=== PATIENT | male | born 1945 | race Caucasian/White ===

== ENCOUNTER → 2018-01-08 07:45 | Outpatient (BNVA) | payer MEDICARE, SELFPAY | PROVIDERS: Visit Provider Urology | DX: C62.91 Malignant neoplasm of right testis, unspecified whether descended or undescended (principal) | CPT/HCPCS: 99213 ==

== ENCOUNTER 2018-01-08 08:43 | Outpatient (CLI) | payer MEDICARE, SELFPAY ==
[2018-01-08 10:11] LABS: LDH 201 U/L (85-227)
[2018-01-09 16:13] LABS: Beta-HCG, Quant, Tumor Marker <0.6 IU/L (<1.4)
[2018-01-11 10:27] LABS: AFP Tumor Marker <2.0 ng/mL (<8.1)
== END 2018-01-08 09:03 ==
PROVIDERS: PCP Emergency Medicine; Visit Provider Urology
DX: C62.91 Malignant neoplasm of right testis, unspecified whether descended or undescended (principal)
CPT/HCPCS: 36415; 99213; 82105; 83615; 84702

== ENCOUNTER → 2018-07-09 07:59 | Outpatient (BNVA) | payer MEDICARE, SELFPAY | PROVIDERS: PCP Emergency Medicine; Visit Provider Urology | DX: C62.91 Malignant neoplasm of right testis, unspecified whether descended or undescended (principal) | CPT/HCPCS: 99213 ==

== ENCOUNTER 2018-07-09 14:34 | Outpatient (CLI) | payer MEDICARE, SELFPAY ==
[2018-07-09 16:35] LABS: LDH 226 U/L (85-227)
[2018-07-12 08:52] LABS: AFP Tumor Marker <2.0 ng/mL (<8.1)
[2018-07-12 13:32] LABS: Beta-HCG, Quant, Tumor Marker <0.6 IU/L (<1.4)
== END 2018-07-09 14:54 ==
PROVIDERS: PCP Emergency Medicine; Visit Provider Urology
DX: C62.91 Malignant neoplasm of right testis, unspecified whether descended or undescended (principal)
CPT/HCPCS: 36415; 99213; 82105; 83615; 84702

== ENCOUNTER 2018-10-20 09:45 | Outpatient (CLI) | payer MEDICARE, SELFPAY ==
[2018-10-21 10:03] LABS: PSA, Screening 3.2 ng/ml (0-6.5)
== END 2018-10-20 10:05 ==
PROVIDERS: PCP Emergency Medicine; Visit Provider Emergency Medicine
DX: Z12.5 Encounter for screening for malignant neoplasm of prostate (principal)
CPT/HCPCS: 36415; 84153

== ENCOUNTER → 2019-01-04 08:23 | Outpatient (BNVA) | payer MEDICARE, SELFPAY | PROVIDERS: PCP Emergency Medicine; Visit Provider Urology | DX: C62.91 Malignant neoplasm of right testis, unspecified whether descended or undescended (principal); Z90.79 Acquired absence of other genital organ(s) | CPT/HCPCS: 36415; 99213; 82105; 83615; 84702 ==

== ENCOUNTER 2019-01-04 09:03 | Outpatient (CLI) | payer MEDICARE, SELFPAY ==
[2019-01-04 10:28] LABS: LDH 167 U/L (85-227)
[2019-01-05 12:34] LABS: AFP Tumor Marker <2.5 ng/mL (<8.1)
[2019-01-05 13:33] LABS: Beta-HCG, Quant, Tumor Marker <0.6 IU/L (<1.4)
== END 2019-01-04 09:23 ==
PROVIDERS: PCP Emergency Medicine; Visit Provider Urology
DX: C62.91 Malignant neoplasm of right testis, unspecified whether descended or undescended (principal)
CPT/HCPCS: 36415; 82105; 83615; 84702

== ENCOUNTER → 2019-07-12 08:08 | Outpatient (BNVA) | payer MEDICARE, SELFPAY | PROVIDERS: PCP Emergency Medicine; Referring Provider Emergency Medicine; Visit Provider Urology | DX: C62.91 Malignant neoplasm of right testis, unspecified whether descended or undescended (principal) | CPT/HCPCS: NC OV ==

== ENCOUNTER 2019-09-01 04:19 | Outpatient (CLI) | payer MEDICARE, SELFPAY ==
[2019-09-01 08:52] LABS: LDH 190 U/L (85-227)
[2019-09-02 09:16] LABS: AFP Tumor Marker <2.5 ng/mL (<8.1)
[2019-09-02 11:36] LABS: Beta-HCG, Quant, Tumor Marker <0.6 IU/L (<1.4)
== END 2019-09-01 04:39 ==
PROVIDERS: PCP Emergency Medicine; Visit Provider Urology
DX: C62.91 Malignant neoplasm of right testis, unspecified whether descended or undescended (principal); E78.5 Hyperlipidemia, unspecified
CPT/HCPCS: 36415; 82105; 83615; 84702

== ENCOUNTER 2019-11-01 09:00 | Outpatient (CLI) | payer MEDICARE, SELFPAY ==
[2019-11-01 12:43] LABS: Anion Gap 6.8 mmol/L (3-11); BUN 19 mg/dL (7-18); CO2 30.2 mmol/L (21.0-32.0); CREATININE 1.03 mg/dL (0.70-1.30); Calcium 9.5 mg/dL (8.5-10.1); Calculated LDL 75 mg/dL (<100); Chloride 103 mmol/L (98-107); Cholesterol 145 mg/dL (<200); Glucose 115 mg/dL (74-106); HDL Cholesterol 48 mg/dL (40-60); Potassium 3.8 mmol/L (3.5-5.1); Sodium 140 mmol/L (136-145); Triglyceride 110 mg/dL (<150)
== END 2019-11-01 09:20 ==
PROVIDERS: PCP Emergency Medicine; Visit Provider Emergency Medicine
DX: I25.10 Atherosclerotic heart disease of native coronary artery without angina pectoris (principal); I10 Essential (primary) hypertension
CPT/HCPCS: 36415; 80048; 80061

== ENCOUNTER → 2020-03-13 08:45 | Outpatient (BNVA) | payer MEDICARE, SELFPAY | PROVIDERS: PCP Emergency Medicine; Referring Provider Emergency Medicine; Visit Provider Urology | DX: C62.91 Malignant neoplasm of right testis, unspecified whether descended or undescended (principal); Z90.79 Acquired absence of other genital organ(s) | CPT/HCPCS: 99213 ==

== ENCOUNTER 2020-03-13 13:20 | Outpatient (REF) | payer MEDICARE, SELFPAY ==
[2020-03-13 13:17] LABS: LDH 180 U/L (85-227)
[2020-03-14 08:59] LABS: AFP Tumor Marker <2.5 ng/mL (<8.1)
[2020-03-30 12:22] LABS: Beta-HCG, Quant, Tumor Marker <0.6 IU/L
== END 2020-03-13 13:40 ==
LOC: LBN 13:20
PROVIDERS: PCP Emergency Medicine; Visit Provider Urology
DX: C62.91 Malignant neoplasm of right testis, unspecified whether descended or undescended (principal)
CPT/HCPCS: 82105; 83615; 84702

== ENCOUNTER → 2020-09-18 08:43 | Outpatient (BNVA) | payer MEDICARE, SELFPAY | PROVIDERS: PCP Emergency Medicine; Referring Provider Emergency Medicine; Visit Provider Urology | DX: C62.91 Malignant neoplasm of right testis, unspecified whether descended or undescended (principal) | CPT/HCPCS: 99213; 99214 ==

== ENCOUNTER 2020-09-18 10:20 | Outpatient (REF) | payer MEDICARE, SELFPAY ==
[2020-09-18 11:36] LABS: LDH 168 U/L (85-227)
[2020-09-19 09:53] LABS: AFP Tumor Marker <2.5 ng/mL (<8.1)
[2020-09-20 13:00] LABS: Beta-HCG, Quant, Tumor Marker <0.6 IU/L (<1.4)
== END 2020-09-18 10:21 | disposition home or self-care (01) ==
LOC: LBN 10:20
PROVIDERS: PCP Emergency Medicine; Visit Provider Urology
DX: C62.91 Malignant neoplasm of right testis, unspecified whether descended or undescended (principal); I10 Essential (primary) hypertension
CPT/HCPCS: 82105; 83615; 84702

== ENCOUNTER 2020-11-29 15:11 | Outpatient (REF) | payer MEDICARE, SELFPAY ==
[2020-11-29 18:13] LABS: Anion Gap 10.8 mmol/L (3-11); BUN 16 mg/dL (7-18); CO2 29.2 mmol/L (21.0-32.0); CREATININE 1.1 mg/dL (0.70-1.30); Calcium 9.5 mg/dL (8.5-10.1); Calculated LDL 79 mg/dL (<100); Chloride 102 mmol/L (98-107); Cholesterol 144 mg/dL (<200); Glucose 92 mg/dL (74-106); HDL Cholesterol 50 mg/dL (40-60); Potassium 4.1 mmol/L (3.5-5.1); Sodium 142 mmol/L (136-145); Triglyceride 79 mg/dL (<150)
[2020-11-30 16:46] LABS: PSA, Diagnostic 3.7 ng/mL (0.0-6.5)
== END 2020-11-29 15:12 | disposition home or self-care (01) ==
LOC: LBN 15:11
PROVIDERS: PCP Emergency Medicine; Visit Provider Emergency Medicine
DX: I10 Essential (primary) hypertension (principal); I25.10 Atherosclerotic heart disease of native coronary artery without angina pectoris; R97.20 Elevated prostate specific antigen [PSA]
CPT/HCPCS: 80048; 80061; 84153

== ENCOUNTER → 2021-03-22 08:42 | Outpatient (BNVA) | payer MEDICARE, SELFPAY | PROVIDERS: PCP Emergency Medicine; Referring Provider Emergency Medicine; Visit Provider Urology | DX: C62.91 Malignant neoplasm of right testis, unspecified whether descended or undescended (principal); R97.20 Elevated prostate specific antigen [PSA] | CPT/HCPCS: 99213 ==

== ENCOUNTER 2021-03-22 15:07 | Outpatient (REF) | payer MEDICARE, SELFPAY ==
[2021-03-22 12:33] LABS: LDH 185 U/L (85-227)
[2021-03-25 09:23] LABS: AFP Tumor Marker <2.5 ng/mL (<8.1)
[2021-03-25 09:48] LABS: Beta-HCG, Quant, Tumor Marker <0.6 IU/L (<1.4)
== END 2021-03-22 15:08 | disposition home or self-care (01) ==
LOC: LBN 15:07
PROVIDERS: PCP Emergency Medicine; Visit Provider Urology
DX: C62.91 Malignant neoplasm of right testis, unspecified whether descended or undescended (principal); R97.20 Elevated prostate specific antigen [PSA]
CPT/HCPCS: 82105; 83615; 84702

== ENCOUNTER → 2021-06-25 00:38 | Outpatient (CLI) | payer MEDICARE, SELFPAY ==
--- NOTE | 2021-06-25 07:15 | DI.US_ITS ---
Exam(s) US CAROTID EXAM: US CAROTID CLINICAL HISTORY: know right carotid occlusion,BRUIT,R09.89. TECHNIQUE: Ultrasound carotids performed using grayscale, color-flow, and spectral Doppler imaging. COMPARISON: No exams were available for comparison FINDINGS: RIGHT CAROTID ARTERY: Plaque: Occlusion of the right internal carotid artery. Velocity elevation: Mild systolic velocity elevation in the right external carotid artery.. LEFT CAROTID ARTERY: Plaque: Mild plaque at the common carotid bulb . Velocity elevation: None. VERTEBRAL ARTERIES: Antegrade flow bilaterally. Measurements: R Bulb: 41cm/s PS / 9.5cm/s ED R CCA: 42.1cm/s PS / 12.6cm/s ED R ECA: 117.5cm/s PS / 18.05cm/s ED R ICA : Occluded R Vert: 88.8cm/s PS / 20.4cm/s ED L Bulb: 87.5cm/s PS /23.1cm/s ED L CCA: 73.7cm/s PS / 18.8cm/s ED L ECA: 68.7cm/s PS /15.9cm/s ED L ICA Prox:54.6cm/s PS / 13.5cm/s ED L ICA Mid: 70.1cm/sPS / 20.6cm/s ED L ICA Distal: 81.6cm/s PS / 23.1cm/s ED L Vert: 40.3cm/s PS / 9.7cm/s ED L SVR: 1.11 L DVR: 1.23 IMPRESSION: Left: No evidence for hemodynamically significant carotid stenosis. Right: Occluded right internal carotid artery. Systolic velocity elevation in the right external car otid artery. Criteria for Carotid Stenosis: Normal: ICA PSV <125 cm/s no plaque or intimal thickening is visible. <50% stenosis: ICA PSV <125 cm/s and plaque or intimal thickening is visible. 50-69% stenosis: ICA PSV is 125-250 cm/s and plaque is visible. >70% stenosis to near occlusion: ICA PSV >250 cm/s with visible plaque and luminal narrowing. DATA REPOSITORY:
== END ==
PROVIDERS: PCP Family Medicine; Visit Provider Emergency Medicine
DX: R09.89 Other specified symptoms and signs involving the circulatory and respiratory systems (principal); I65.21 Occlusion and stenosis of right carotid artery
CPT/HCPCS: 93880

== ENCOUNTER 2021-09-13 15:58 | Outpatient (REF) | payer MEDICARE, SELFPAY | END 2021-09-13 15:59 | disposition home or self-care (01) | LOC: LBN 15:58 | PROVIDERS: PCP Family Medicine; Visit Provider Emergency Medicine ==

== ENCOUNTER 2021-09-13 16:09 | Outpatient (REF) | payer MEDICARE, SELFPAY ==
[2021-09-13 09:30] LABS: Anion Gap 4.1 mmol/L (3-11); BUN 17 mg/dL (7-18); CO2 31.9 mmol/L (21.0-32.0); CREATININE 1.1 mg/dL (0.70-1.30); Calcium 9.6 mg/dL (8.5-10.1); Chloride 101 mmol/L (98-107); Glucose 120 mg/dL (74-106); Potassium 3.6 mmol/L (3.5-5.1); Sodium 137 mmol/L (136-145)
[2021-09-13 09:35] LABS: LDH 169 U/L (85-227)
[2021-09-16 11:26] LABS: AFP Tumor Marker <2.5 ng/mL (<8.1)
[2021-09-16 11:55] LABS: Beta-HCG, Quant, Tumor Marker <0.6 IU/L (<1.4)
== END 2021-09-13 16:10 | disposition home or self-care (01) ==
LOC: LBN 16:09
PROVIDERS: Emergency Medicine; PCP Family Medicine; Visit Provider Urology
DX: C62.91 Malignant neoplasm of right testis, unspecified whether descended or undescended (principal); R09.89 Other specified symptoms and signs involving the circulatory and respiratory systems; I10 Essential (primary) hypertension
CPT/HCPCS: 80048; 82105; 83615; 84702

== ENCOUNTER → 2021-09-17 13:54 | Outpatient (BNVA) | payer MEDICARE, SELFPAY | PROVIDERS: PCP Family Medicine; Referring Provider Family Medicine; Visit Provider Urology | DX: C62.91 Malignant neoplasm of right testis, unspecified whether descended or undescended (principal); R97.20 Elevated prostate specific antigen [PSA] | CPT/HCPCS: 99215 ==

== ENCOUNTER 2022-01-31 02:04 | Outpatient (CLI) | payer MEDICARE, SELFPAY ==
[2022-02-03 12:19] LABS: PSA, Screening 4.7 ng/mL (<=6.5)
== END 2022-01-31 02:05 | disposition home or self-care (01) ==
LOC: LBO 02:05
PROVIDERS: PCP Family Medicine; Visit Provider Urology
DX: R97.20 Elevated prostate specific antigen [PSA] (principal); Z12.5 Encounter for screening for malignant neoplasm of prostate
CPT/HCPCS: 36415; 84153

== ENCOUNTER 2022-03-21 11:38 | Outpatient (REF) | payer MEDICARE, SELFPAY ==
[2022-03-21 09:04] LABS: LDH 170 U/L (85-227)
[2022-03-24 10:36] LABS: AFP Tumor Marker <2.5 ng/mL (<8.1)
[2022-03-24 11:16] LABS: Beta-HCG, Quant, Tumor Marker <0.6 IU/L (<1.4)
== END 2022-03-21 11:39 | disposition home or self-care (01) ==
LOC: LBN 11:38
PROVIDERS: PCP Family Medicine; Visit Provider Urology
DX: R97.20 Elevated prostate specific antigen [PSA] (principal); C62.91 Malignant neoplasm of right testis, unspecified whether descended or undescended
CPT/HCPCS: 82105; 83615; 84153; 84702

== ENCOUNTER → 2022-05-13 09:54 | Outpatient (BNVA) | payer MEDICARE, SELFPAY | PROVIDERS: PCP Family Medicine; Referring Provider Family Medicine; Visit Provider Urology | DX: R97.20 Elevated prostate specific antigen [PSA] (principal); C62.91 Malignant neoplasm of right testis, unspecified whether descended or undescended | CPT/HCPCS: 99214 ==

== ENCOUNTER → 2022-11-14 08:28 | Outpatient (BNVA) | payer MEDICARE, SELFPAY | PROVIDERS: PCP Family Medicine; Referring Provider Family Medicine; Visit Provider Urology | DX: Z85.47 Personal history of malignant neoplasm of testis (principal); R97.20 Elevated prostate specific antigen [PSA] | CPT/HCPCS: 99214 ==

== ENCOUNTER 2022-11-14 12:51 | Outpatient (CLI) | payer MEDICARE, SELFPAY ==
[2022-11-14 10:25] LABS: LDH 194 U/L (85-227)
[2022-11-17 08:15] LABS: AFP Tumor Marker <2.5 ng/mL (<8.1)
[2022-11-17 09:54] LABS: PSA, Diagnostic 4.8 ng/mL (<=6.5)
[2022-11-17 11:24] LABS: Beta-HCG, Quant, Tumor Marker <0.6 IU/L (<1.4)
== END 2022-11-14 12:52 | disposition home or self-care (01) ==
LOC: LBO 12:51
PROVIDERS: PCP Family Medicine; Visit Provider Urology
DX: R97.20 Elevated prostate specific antigen [PSA] (principal); C62.91 Malignant neoplasm of right testis, unspecified whether descended or undescended
CPT/HCPCS: 36415; 99214; 82105; 83615; 84153; 84702

== ENCOUNTER 2023-01-14 12:50 | Outpatient (CLI) | payer MEDICARE, SELFPAY ==
[2023-01-14 11:47] LABS: HCT 46.3 % (40.0-50.0); MCH 31.7 pg (27.0-33.0); MCHC 34.6 % (32.0-36.0); MCV 92 fL (80-95); Platelet Count 195 10^3/uL (130-400); RBC 5.05 10^6/uL (4.36-5.78); RDW 12.8 % (11.8-14.1); WBC 9.42 10^3/uL (4.4-10.8)
[2023-01-14 12:33] LABS: ALT 48 U/L (16-63); AST 23 U/L (15-37); Albumin 3.8 g/dL (3.4-5.0); Alkaline Phosphatase 99 U/L (46-116); Anion Gap 7.9 mmol/L (3-11); BUN 21 mg/dL (7-18); Bilirubin, Total 1.7 mg/dL (0.2-1.0); CO2 27.1 mmol/L (21.0-32.0); CREATININE 1.1 mg/dL (0.70-1.30); Calcium 9.6 mg/dL (8.5-10.1); Calculated LDL 51 mg/dL (<100); Chloride 101 mmol/L (98-107); Cholesterol 142 mg/dL (<200); Estimated GFR 69.57 (mL/min/1.73m2); Glucose 112 mg/dL (74-106); HDL Cholesterol 48 mg/dL (40-60); Potassium 3.5 mmol/L (3.5-5.1); Sodium 136 mmol/L (136-145); Total Protein 7.5 g/dL (6.4-8.2); Triglyceride 216 mg/dL (<150)
[2023-01-15 09:47] LABS: Lab Add On Test DONE
[2023-01-15 10:23] LABS: Hemoglobin A1C 6.2 % (<5.7)
== END 2023-01-14 12:51 | disposition home or self-care (01) ==
LOC: LBO 12:51
PROVIDERS: PCP Family Medicine; Visit Provider Nurse Practitioner Family
DX: I10 Essential (primary) hypertension (principal); I25.10 Atherosclerotic heart disease of native coronary artery without angina pectoris; R97.20 Elevated prostate specific antigen [PSA]; Z00.00 Encounter for general adult medical examination without abnormal findings; R73.09 Other abnormal glucose
CPT/HCPCS: 36415; 80053; 80061; 85027; 83036

== ENCOUNTER → 2023-04-29 14:45 | Outpatient (CLI) | payer MEDICARE, SELFPAY ==
--- NOTE | 2023-04-29 11:00 | DI.CT_ITS ---
Exam(s) CT HEAD WO EXAM: CT HEAD WO CLINICAL HISTORY: head injury, posterior scalp injury. ON plavix,S09.90xa. TECHNIQUE: Imaging Protocol: Axial computed tomography images with coronal and sagittal reformatted images were created and reviewed COMPARISON: No exams were available for comparison FINDINGS: There are no skull fractures. There is no fluid in the visualized paranasal sinuses. There is no evidence of intracranial hemorrhage, mass effect, or shift of midline structures. There are no extra-axial fluid collections. The ventricles are not enlarged or shifted and there is no blo od within the ventricular system nor within the basal cisterns. Calcification is noted in the right vertebral artery at the skull base. There is periventricular hypodensity which is predominately right-sided. IMPRESSION: No skull fracture. No intracranial hemorrhage. However, there is asymmetric periventricular hypodensity on the left side of the brain. Recommend fo llow-up MRI. RADIATION DOSE DELIVERED: Total DLP DATA REPOSITORY: All CT scans at this facility are submitted to the National Radiology Data Registry (NRDR) Dose Index Registry (DIR) with the [employer] ([employer]). RADIATION OPTIMIZATION: All CT scans at this facility use at least one of these dose optimization te chniques: automated exposure control; mA and/or kV adjustment per patient size (includes targeted exa ms where dose is matched to clinical indication); or iterative reconstruction.
== END ==
PROVIDERS: PCP Family Medicine; Visit Provider Physician Assistant
DX: S09.90XA Unspecified injury of head, initial encounter (principal); R94.02 Abnormal brain scan; X58.XXXA Exposure to other specified factors, initial encounter
CPT/HCPCS: 70450

== ENCOUNTER → 2023-05-13 02:10 | Outpatient (CLI) | payer MEDICARE, SELFPAY ==
--- NOTE | 2023-05-13 07:15 | DI.MRI_ITS ---
Exam(s) MR BRAIN WO/W EXAM: MR BRAIN WO/W CLINICAL HISTORY: left asymmetry noted on CT,head injury,s09.90xa TECHNIQUE: Multiplanar multisequence MRI of the brain was performed. CONTRAST MATERIAL: IV Contrast: mL of Dotarem contrast administered. COMPARISON: CT CT HEAD WO from 04/29/2023 FINDINGS: VENTRICLES AND EXTRA AXIAL SPACES: Normal in size and morphology for the patient's age. HEMORRHAGE: None. CEREBRAL PARENCHYMA: No focus of restricted diffusion to suggest acute infarct. No space-occupying le armaan identified. There are several areas of hyperintense signal seen in the white matter on the FLAIR and T2 weighted images consistent with chronic microvascular ischemic disease. It is more prominent in the left cerebral hemisphere. MIDLINE SHIFT: None. BRAINSTEM/CEREBELLUM: Normal. CALVARIUM: Normal. ENHANCEMENT: No suspicious enhancement identified. VISUALIZED PARANASAL SINUSES/MASTOIDS: Clear. [place]: There is loss of the normal flow void in the distal cervical, petrous and cavernous portions of the right internal carotid artery. PITUITARY GLAND: Unremarkable. OTHER FINDINGS: IMPRESSION: 1. Cerebral atrophy and chronic microvascular ischemic disease. 2. No evidence of an intracranial mass or enhancing lesion. 3. Loss of the flow void in the distal cervical, petrous and cavernous portions of the right internal carotid arteries concerning for obstruction. An MRA or CT angiography of the head and neck is recom mended for further evaluation. Unexpected findings DATA REPOSITORY:
[2023-05-13 10:16] LABS: CREATININE 1.1 mg/dL (0.70-1.30); Estimated GFR 69.57 (mL/min/1.73m2)
[2023-05-13 10:25] LABS: LDH 272 U/L (85-227)
[2023-05-13 17:50] LABS: AFP Tumor Marker <2.5 ng/mL (<8.1)
[2023-05-13 17:57] LABS: PSA, Diagnostic 5.5 ng/mL (<=6.5)
[2023-05-14 17:38] LABS: Beta-HCG, Quant, Tumor Marker <0.6 IU/L (<1.4)
== END ==
PROVIDERS: Urology; PCP Family Medicine; Visit Provider Physician Assistant
DX: S09.90XA Unspecified injury of head, initial encounter (principal); C62.91 Malignant neoplasm of right testis, unspecified whether descended or undescended; R97.20 Elevated prostate specific antigen [PSA]; R94.02 Abnormal brain scan; G31.9 Degenerative disease of nervous system, unspecified
CPT/HCPCS: 70553; 82105; 82565; 83615; 84153; 84702

== ENCOUNTER 2023-05-15 02:43 | Outpatient (CLI) | payer MEDICARE, SELFPAY ==
[2023-05-15 18:30] LABS: AFP Tumor Marker <2.5 ng/mL (<8.1); PSA, Diagnostic 5.4 ng/mL (<=6.5)
[2023-05-18 15:08] LABS: Beta-HCG, Quant, Tumor Marker <0.6 IU/L (<1.4)
== END 2023-05-15 02:44 | disposition home or self-care (01) ==
LOC: LBO 02:43
PROVIDERS: PCP Family Medicine; Visit Provider Urology
DX: C62.91 Malignant neoplasm of right testis, unspecified whether descended or undescended (principal); R97.20 Elevated prostate specific antigen [PSA]
CPT/HCPCS: 36415; 82105; 84153; 84702

== ENCOUNTER → 2023-05-22 09:45 | Outpatient (BNVA) | payer MEDICARE, SELFPAY | PROVIDERS: PCP Family Medicine; Referring Provider Family Medicine; Visit Provider Urology | DX: R35.1 Nocturia (principal); C62.91 Malignant neoplasm of right testis, unspecified whether descended or undescended; R97.20 Elevated prostate specific antigen [PSA] | CPT/HCPCS: 99214 ==

== ENCOUNTER 2023-11-20 01:22 | Outpatient (CLI) | payer MEDICARE, SELFPAY ==
[2023-11-20 12:43] LABS: LDH 176 U/L (85-227)
[2023-11-20 23:02] LABS: PSA, Diagnostic 5.5 ng/mL (<=6.5)
[2023-11-23 09:09] LABS: AFP Tumor Marker <2.5 ng/mL (<8.1)
[2023-11-23 14:19] LABS: Beta-HCG, Quant, Tumor Marker <0.6 IU/L (<1.4)
== END 2023-11-20 01:23 | disposition home or self-care (01) ==
LOC: LOS 01:22
PROVIDERS: PCP Family Medicine; Visit Provider Urology
DX: C62.91 Malignant neoplasm of right testis, unspecified whether descended or undescended (principal); R97.20 Elevated prostate specific antigen [PSA]
CPT/HCPCS: 36415; 82105; 83615; 84153; 84702

== ENCOUNTER → 2023-11-27 07:51 | Outpatient (BNVA) | payer MEDICARE, SELFPAY | PROVIDERS: PCP Family Medicine; Visit Provider Urology | DX: C62.91 Malignant neoplasm of right testis, unspecified whether descended or undescended (principal); R97.20 Elevated prostate specific antigen [PSA] | CPT/HCPCS: 99215 ==

== ENCOUNTER 2023-12-22 12:53 | Outpatient (CLI) | payer MEDICARE, SELFPAY ==
[2023-12-22 12:51] LABS: Anion Gap 8.3 mmol/L (3-11); BUN 20 mg/dL (7-18); CO2 28.7 mmol/L (21.0-32.0); CREATININE 1.1 mg/dL (0.70-1.30); Calcium 9.5 mg/dL (8.5-10.1); Calculated LDL 56 mg/dL (<100); Chloride 105 mmol/L (98-107); Cholesterol 135 mg/dL (<200); Estimated GFR 69.14 (mL/min/1.73m2); Glucose 109 mg/dL (74-106); HDL Cholesterol 64 mg/dL (40-60); Potassium 3.9 mmol/L (3.5-5.1); Sodium 142 mmol/L (136-145); Triglyceride 75 mg/dL (<150)
[2023-12-22 13:23] LABS: Hemoglobin A1C 5.6 % (<5.7)
== END 2023-12-22 12:54 | disposition home or self-care (01) ==
LOC: LOS 12:54
PROVIDERS: PCP Family Medicine; Referring Provider Nurse Practitioner Family; Visit Provider Nurse Practitioner Family
DX: Z00.00 Encounter for general adult medical examination without abnormal findings (principal); I10 Essential (primary) hypertension; I25.10 Atherosclerotic heart disease of native coronary artery without angina pectoris; R97.20 Elevated prostate specific antigen [PSA]; R73.03 Prediabetes
CPT/HCPCS: 36415; 80048; 80061; 83036

== ENCOUNTER 2024-05-26 11:14 | Outpatient (CLI) | payer MEDICARE, SELFPAY ==
[2024-05-26 11:40] LABS: LDH 159 U/L (85-227)
[2024-05-26 22:54] LABS: PSA, Diagnostic 5.3 ng/mL (<=6.5)
[2024-05-27 09:42] LABS: AFP Tumor Marker <2.5 ng/mL (<8.1)
[2024-05-28 09:51] LABS: Beta-HCG, Quant, Tumor Marker <0.6 IU/L (<1.4)
== END 2024-05-26 11:15 | disposition home or self-care (01) ==
LOC: LBO 11:14
PROVIDERS: PCP Family Medicine; Visit Provider Urology
DX: C62.91 Malignant neoplasm of right testis, unspecified whether descended or undescended; R97.20 Elevated prostate specific antigen [PSA]
CPT/HCPCS: 36415; 82105; 83615; 84153; 84702

== ENCOUNTER → 2024-06-03 07:48 | Outpatient (BNVA) | payer MEDICARE, SELFPAY | PROVIDERS: PCP Family Medicine; Referring Provider Family Medicine; Visit Provider Urology | DX: K40.90 Unilateral inguinal hernia, without obstruction or gangrene, not specified as recurrent (principal); C62.91 Malignant neoplasm of right testis, unspecified whether descended or undescended | CPT/HCPCS: 99214 ==

== ENCOUNTER 2024-11-21 04:42 | Outpatient (CLI) | payer MEDICARE, SELFPAY ==
[2024-11-21 14:03] LABS: Hemoglobin A1C 5.5 % (<5.7)
[2024-11-21 15:42] LABS: ALT 47 U/L (16-63); AST 30 U/L (15-37); Albumin 4.0 g/dL (3.4-5.0); Alkaline Phosphatase 90 U/L (46-116); Anion Gap 6.0 mmol/L (3-11); BUN 19 mg/dL (7-18); Bilirubin, Total 2.1 mg/dL (0.2-1.0); CO2 31.0 mmol/L (21.0-32.0); Calcium 9.7 mg/dL (8.5-10.1); Chloride 100 mmol/L (98-107); Estimated GFR 77.04 (mL/min/1.73m2); Glucose 98 mg/dL (74-106); Potassium 3.9 mmol/L (3.5-5.1); Sodium 137 mmol/L (136-145); Total Protein 7.4 g/dL (6.4-8.2)
[2024-11-21 16:23] LABS: Calculated LDL 92 mg/dL (<100); Cholesterol 171 mg/dL (<200); HDL Cholesterol 70 mg/dL (>or=40); Triglyceride 49 mg/dL (<150)
[2024-11-21 17:24] LABS: LDH 210 U/L (85-227)
[2024-11-21 23:09] LABS: PSA, Diagnostic 6.4 ng/mL (<=6.5)
[2024-11-22 18:45] LABS: Beta-HCG, Quant, Tumor Marker <0.6 IU/L (<1.4)
== END 2024-11-21 04:43 | disposition home or self-care (01) ==
LOC: LBO 04:42
PROVIDERS: Nurse Practitioner Family; PCP Family Medicine; Visit Provider Urology
DX: C62.91 Malignant neoplasm of right testis, unspecified whether descended or undescended (principal); C62.90 Malignant neoplasm of unspecified testis, unspecified whether descended or undescended; R97.20 Elevated prostate specific antigen [PSA]; Z00.00 Encounter for general adult medical examination without abnormal findings; I10 Essential (primary) hypertension; I25.10 Atherosclerotic heart disease of native coronary artery without angina pectoris; R73.03 Prediabetes
CPT/HCPCS: 36415; 80053; 80061; 83695; 82105; 83036; 83615; 84153; 84702

== ENCOUNTER → 2024-12-02 07:51 | Outpatient (BNVA) | payer MEDICARE, SELFPAY | PROVIDERS: PCP Family Medicine; Referring Provider Family Medicine; Visit Provider Urology | DX: C62.91 Malignant neoplasm of right testis, unspecified whether descended or undescended (principal); R97.20 Elevated prostate specific antigen [PSA] | CPT/HCPCS: 99214 ==

== ENCOUNTER 2025-01-23 02:20 | Outpatient (CLI) | payer MEDICARE, SELFPAY ==
--- NOTE | 2025-01-23 06:30 | DI.US_ITS ---
Exam(s) US CAROTID EXAM: US CAROTID CLINICAL HISTORY: monitoring BRUIT,ASCVD,I25.10,R09.89. TECHNIQUE: Ultrasound carotids performed using grayscale, color-flow, and spectral Doppler imaging. COMPARISON: US US CAROTID from 06/25/2021 FINDINGS: RIGHT CAROTID ARTERY: Plaque: Severe, occlusion in the mid to distal portion. Trace amount of flow proximally. LEFT CAROTID ARTERY: Plaque: Mild at the bulb. Velocity elevation: None. VERTEBRAL ARTERIES: Antegrade flow. Measurements: R Bulb: 33.8cm/s PS / 5.4cm/s ED R CCA: 38.7cm/s PS / 11.5cm/s ED R ECA: 134.5cm/s PS / 16cm/s ED R ICA Prox: 59.8cm/s PS / 10.8cm/s ED R ICA Mid: PS / ED R ICA Distal: PS / ED R Vert: 82cm/s PS / 18.5cm/s ED R SVR: 1.5 R DVR: 0.9 L Bulb: 48.1cm/s PS / 13.3cm/s ED L CCA: 79.7cm/s PS / 16.6cm/s ED L ECA: 89.8cm/s PS / 0cm/s ED L ICA Prox: 57.5cm/s PS / 12.4cm/s ED L ICA Mid: 86cm/s PS / 22.3cm/s ED L ICA Distal: 111.5cm/s PS / 28.7cm/s ED L Vert: 39.8cm/s PS / 8.7cm/s ED L SVR: 1.4 L DVR: 1.7 IMPRESSION: Known occlusion of the right internal carotid artery. No significant stenosis of the left internal carotid artery. Criteria for Carotid Stenosis: Normal: ICA PSV <125 cm/s no plaque or intimal thickening is visible. <50% stenosis: ICA PSV <125 cm/s and plaque or intimal thickening is visible. 50-69% stenosis: ICA PSV is 125-250 cm/s and plaque is visible. >70% stenosis to near occlusion: ICA PSV >250 cm/s with visible plaque and luminal narrowing. DATA REPOSITORY:
== END 2025-01-23 02:40 ==
LOC: DI 02:20
PROVIDERS: PCP Family Medicine; Visit Provider Nurse Practitioner Family
DX: R09.89 Other specified symptoms and signs involving the circulatory and respiratory systems (principal); I25.10 Atherosclerotic heart disease of native coronary artery without angina pectoris
CPT/HCPCS: 93880